=== PATIENT | male | born 1930 | race Caucasian/White ===

== ENCOUNTER → 2016-12-19 | Outpatient (CLI) | payer MEDICARE | END | disposition home or self-care (01) | LOC: CFH 11:07 | PROVIDERS: ATTEND Internal Medicine Cardiovascular Disease | DX: I08.3 Combined rheumatic disorders of mitral, aortic and tricuspid valves (principal); I48.91 Unspecified atrial fibrillation | CPT/HCPCS: 93306 ==

== ENCOUNTER 2017-02-14 19:48 | Emergency (ER) | payer MEDICARE ==
[~2017-02-14] VITALS: Ht 182.9 cm; Wt 90.0 kg
[2017-02-14] MEDS ORDERED: PRAV20TA2 PO (20:16)
[2017-02-14] MEDS ORDERED: LEVO25TA4 PO (20:16)
[2017-02-14 21:34] VITALS: BP 141/81
== END 2017-02-14 22:22 | disposition home or self-care (01) ==
LOC: ED 22:00
DX: R04.0 Epistaxis (principal); E78.5 Hyperlipidemia, unspecified; E03.9 Hypothyroidism, unspecified
CPT/HCPCS: 99283